=== PATIENT | male | born 1950 | race Caucasian/White ===

== ENCOUNTER 2017-06-09 14:47 | Outpatient (CLI) | END 2017-06-09 14:48 | disposition home or self-care (01) | LOC: FCC-LAB 14:47 | PROVIDERS: ATTEND Family Medicine | DX: E11.9 Type 2 diabetes mellitus without complications (principal); E78.00 Pure hypercholesterolemia, unspecified; I10 Essential (primary) hypertension; Z12.5 Encounter for screening for malignant neoplasm of prostate | CPT/HCPCS: 36415; 80053; 80061; 83036; 85025 ==

== ENCOUNTER 2017-09-12 09:58 | Outpatient (CLI) | END 2017-09-12 09:59 | disposition home or self-care (01) | LOC: FCC-LAB 09:58 | PROVIDERS: ATTEND Family Medicine | DX: E11.22 Type 2 diabetes mellitus with diabetic chronic kidney disease (principal); N18.2 Chronic kidney disease, stage 2 (mild) | CPT/HCPCS: 36415; 80053; 83037 ==

== ENCOUNTER 2018-01-19 09:36 | Outpatient (CLI) | END 2018-01-19 09:37 | disposition home or self-care (01) | LOC: FCC-LAB 09:36 | PROVIDERS: ATTEND Family Medicine | DX: E78.2 Mixed hyperlipidemia (principal); E11.9 Type 2 diabetes mellitus without complications; I10 Essential (primary) hypertension | CPT/HCPCS: 36415; 80053; 82043; 83037 ==

== ENCOUNTER 2018-07-22 09:14 | Outpatient (CLI) | END 2018-07-22 09:15 | disposition home or self-care (01) | LOC: RHC-LAB 09:14 → FCC-LAB 09:15 | PROVIDERS: ATTEND Family Medicine | DX: R53.81 Other malaise (principal); E11.9 Type 2 diabetes mellitus without complications; I10 Essential (primary) hypertension; E78.2 Mixed hyperlipidemia | CPT/HCPCS: 36415; 80053; 80061; 83037; 84443; 85025 ==

== ENCOUNTER 2018-07-27 09:23 | Outpatient (CLI) | END 2018-07-27 09:24 | disposition home or self-care (01) | LOC: LAB 09:23 | PROVIDERS: ATTEND Family Medicine | DX: R53.81 Other malaise (principal) | CPT/HCPCS: 82272 ==